=== PATIENT | female | born 1960 | race Caucasian/White ===

== ENCOUNTER 2020-03-05 | Outpatient (REF) | payer OTHER, SELFPAY ==
[2020-03-05 04:58] LABS: SARS COV2 PCR INHOUSE NEGATIVE (Negative)
== END 2020-03-05 00:01 | disposition home or self-care (01) ==
LOC: HO.LAB
PROVIDERS: Visit Provider Internal Medicine
DX: Z20.828 Contact with and (suspected) exposure to other viral communicable diseases (principal)
CPT/HCPCS: 87635

== ENCOUNTER 2020-03-11 06:18 | Outpatient (REF) | payer OTHER, SELFPAY ==
[2020-03-11 06:46] LABS: COVID-19 Test Negative (Negative)
== END 2020-03-11 06:19 | disposition home or self-care (01) ==
LOC: HO.LAB 06:18
PROVIDERS: Visit Provider Internal Medicine
DX: Z20.828 Contact with and (suspected) exposure to other viral communicable diseases (principal)
CPT/HCPCS: 87635

== ENCOUNTER 2020-05-14 12:32 | Outpatient (REF) | payer OTHER, SELFPAY ==
[2020-05-14 13:56] LABS: COVID-19 Test Negative (Negative)
== END 2020-05-14 12:33 | disposition home or self-care (01) ==
LOC: HO.LAB 12:32
PROVIDERS: Visit Provider Internal Medicine
DX: Z20.828 Contact with and (suspected) exposure to other viral communicable diseases (principal)
CPT/HCPCS: 87635; C9803

== ENCOUNTER 2020-05-20 06:56 | Outpatient (REF) | payer OTHER, SELFPAY ==
[2020-05-20 07:23] LABS: COVID-19 Test Negative (Negative); IDNOW Serial# 55D5AD1C
== END 2020-05-20 06:57 | disposition home or self-care (01) ==
LOC: HO.EMPCOV 06:56
PROVIDERS: Visit Provider Internal Medicine
DX: Z20.828 Contact with and (suspected) exposure to other viral communicable diseases (principal)
CPT/HCPCS: 36415; 87635; C9803

== ENCOUNTER 2020-11-12 06:14 | Outpatient (REF) | payer OTHER, SELFPAY ==
[2020-11-12 07:37] LABS: MANUAL DIFF FLAG NO
[2020-11-12 07:45] LABS: Basophils Absolute Auto 0.1 X10*3/uL (0.0-0.2); Basophils Percent Auto 0.6 % (0-2); Eosinophils Absolute Auto 0.2 X10*3/uL (0.0-0.4); Eosinophils Percent Auto 2.8 % (0-4); Hematocrit 40.4 % (37-47); Hemoglobin 13.9 g/dl (12.0-16.0); Imm Gran Abs Auto 0.02 X10*3/uL (0.00-0.03); Imm Gran Pct Auto 0.2 % (0.0-0.4); Lymphocytes Absolute Auto 2.6 X10*3/uL (1.2-4.9); Mean Corpuscular HGB Conc 34.4 g/dl (31.0-35.0); Mean Corpuscular Hemoglobin 30.2 pg (27.0-33.0); Mean Corpuscular Volume 87.6 fL (80-98); Mean Platelet Volume 10.9 fL (9.4-12.3); Monocytes Absolute Auto 0.7 X10*3/uL (0.1-1.2); Monocytes Percent Auto 8.6 % (2-11); Neutrophils Absolute Auto 4.7 X10*3/uL (2.0-8.3); Neutrophils Percent Auto 56.8 % (45-73); Platelet Count 268 X10*3/uL (160-400); Red Blood Count 4.61 X10*6/uL (4.20-5.50); Red Cell Distribution Width 12.1 % (11.0-16.0); White Blood Count 8.3 X10*3/uL (4.8-10.8)
[2020-11-12 08:14] LABS: Alanine Aminotransferase 25 U/L (0-31); Albumin Level 4.3 g/dL (3.5-5.0); Alkaline Phosphatase 82 U/L (39-117); Anion Gap 14 (12-20); Aspartate Amino Transferase 20 U/L (5-31); Bilirubin Total 0.4 mg/dL (0.0-1.0); Blood Urea Nitrogen 16 mg/dL (9-16); Calcium 9.2 mg/dL (8.4-10.2); Carbon Dioxide 26 mmol/L (22-29); Chloride 106 mmol/L (96-108); Cholesterol 147 mg/dL; Estimated Glomerular Filt Rate > 60; Glucose Random 113 mg/dL (60-115); HDL Cholesterol 44 mg/dL; Iron 59 mcg/dL (30-160); Percent Iron Saturation 18 % (15-50); Potassium 3.7 mmol/L (3.3-5.1); Sodium 142 mmol/L (135-145); Total Iron Binding Capacity 319 mcg/dL (228-428); Total Protein 7.1 g/dL (6.5-8.0); Unsaturated Iron Binding 260 ug/dL
[2020-11-12 08:15] LABS: Creatinine Urine 166.83 mg/dL; Microalbum/Creatinine Ratio Ur 4.7 ug/mg cr
[2020-11-12 08:37] LABS: Ferritin 120 ng/mL (10-250); TSH reflex Free T4 2.68 uIU/mL (0.32-4.0); Vitamin D 25-OH Total 39.6 ng/mL (>30)
[2020-11-13 04:11] LABS: ~HepC Num1 0.07 S/CO (0.00-0.79); ~Hepatitis C Antibody Nonreactive (Nonreactive)
[2020-11-13 07:26] LABS: LDL Cholesterol Direct 74 mg/dL (<100)
== END 2020-11-12 06:15 | disposition home or self-care (01) ==
LOC: HO.LAB 06:14
PROVIDERS: PCP Internal Medicine; Visit Provider Internal Medicine
DX: Z00.00 Encounter for general adult medical examination without abnormal findings (principal); E78.00 Pure hypercholesterolemia, unspecified; I10 Essential (primary) hypertension; G47.33 Obstructive sleep apnea (adult) (pediatric); K63.5 Polyp of colon
CPT/HCPCS: 36415; 80053; 82043; 82306; 82465; 82728; 83540; 83718; 83721; 84443; 85025; 86803

== ENCOUNTER → 2021-01-14 15:32 | Outpatient (BNVA) | payer OTHER, SELFPAY | PROVIDERS: PCP Internal Medicine; Visit Provider Internal Medicine ==

== ENCOUNTER → 2021-01-19 09:35 | Outpatient (BNVA) | payer OTHER, SELFPAY | PROVIDERS: PCP Internal Medicine; Visit Provider Physician Assistant ==

== ENCOUNTER 2021-02-15 11:24 | Outpatient (REF) | payer OTHER, SELFPAY ==
--- NOTE | ~2021-02-15 | MM_ITS ---
EXAMINATION: MM SCREENING DIGITAL BREAST TOMOSYNTHESIS, BILATERAL CLINICAL INFORMATION: Screening. Asymptomatic. The lifetime risk of breast cancer based on the Tyrer-Cuzick Model is 11%. COMPARISON: Mammography: 06/19/2018, outside mammography 09/09/2014 ([facility]). TECHNIQUE: Digital breast tomosynthesis is performed in both the craniocaudal and mediolateral oblique views along with computer-aided detection (CAD). Synthesized 2D images are generated from the tomosynthesis. FINDINGS: There are scattered areas of fibroglandular density (ACR BI-RADS breast composition Category b). There are no significant masses, abnormal calcifications, or other abnormalities. No developing density. No significant changes. The axilla and skin contours are unremarkable. MM/MM tomosynthesis screening BI IMPRESSION: No mammographic evidence of malignancy. ASSESSMENT: BI-RADS 1: Negative RECOMMENDATION: Routine annual mammography screening. This patient's information was entered into a reminder system with a target due date for their next mammogram.
== END 2021-02-15 11:25 | disposition home or self-care (01) ==
LOC: HO.MAMMO 11:24
PROVIDERS: Visit Provider Internal Medicine
DX: Z12.31 Encounter for screening mammogram for malignant neoplasm of breast (principal)
CPT/HCPCS: 77063; 77067

== ENCOUNTER 2021-04-16 06:35 | Day surgery (SDC) | payer OTHER, SELFPAY ==
[2021-04-07 11:42] VITALS: BMI 28.7
--- NOTE | 2021-04-15 10:57 | HO.ANESPROP2 ---
Documented by User: Heather Luke NP 04/15/21 10:58 HPI - Anesthesia Eval Consult details Narrative: 61yo F for Colonoscopy PMFSH Active Problems Active Problems: All Active Problems (Updated 04/07/21 @ 11:41 by Rika Marcano RN) Encounter for screening colonoscopy (Acute) Chronic GERD (Acute) DANIELA on CPAP (Acute) Obesity (BMI 30.0-34.9) (Acute) Past Medical History Medical History Chronic GERD COVID-19 vaccine series completed Depression Obesity (BMI 30.0-34.9) DANIELA on CPAP Family History Family History (Updated 01/19/21 @ 09:40 by PEPE Pardo) Mother History of breast cancer Surgical History Surgical History H/O colonoscopy History of open reduction and internal fixation (ORIF) procedure Hx of dilation and curettage Social History Social History (Updated 01/19/21 @ 10:22 by Michelle Barajas PA-C) Household Members Other:: - children Are you a primary personal care home administrator to a significant other at home: No Do you presently have visiting nurse or other home services: No Alcohol intake: current Alcohol intake frequency: holidays/special occasions only Patient Tobacco Use Status: Never used Tobacco Use of substances other than those prescribed or required for medical reasons: No Have you been hit, kicked, punched, or otherwise hurt by someone within the past year? If so, by whom?: No Are you DNR?: No Advance Directives: No (states would be Lee but no official HCP form) Advance Directives Information Provided: Yes (informational brochure mailed) Advance Directives on File: No Recently lost weight without trying: No Eating poorly because of decreased appetite: No Nutrition Risks: No Nutritional Risk Poor oral hygiene: No (upper front caps / lower front removable bridge) Current occupation: RN C ED Meds Allergies Allergy/AdvReac Type Severity Reaction Status Date / Time lisinopril [LISINOPRIL] AdvReac Intermediate COUGH Verified 04/07/21 11:17 Home Medications Medication Instructions Recorded Confirmed Last Taken Type amlodipine 5 mg tablet 5 mg PO BEDTIME 01/14/21 04/07/21 Unknown History atorvastatin 20 mg tablet 20 mg PO BEDTIME 01/14/21 04/07/21 Unknown History citalopram 20 mg tablet 20 mg PO DAILY 01/14/21 04/07/21 Unknown History hydrochlorothiazide 25 mg tablet 25 mg PO DAILY 01/14/21 04/07/21 Unknown History omeprazole 20 mg capsule,delayed 20 mg PO DAILY 01/14/21 04/16/21 04/16/21 05:00 History release Exam Exam Date and Time: April 15, 2021 1057 Height,Weight and Vital Signs: Height 5 ft 2 in Weight 71.214 kg Pertinent Lab Results Pertinent Lab Results: Laboratory Tests 11/12/20 11/12/20 06:45 06:45 WBC 8.3 Hgb 13.9 Hct 40.4 Plt Count 268 Sodium 142 Potassium 3.7 Chloride 106 Carbon Dioxide 26 BUN 16 Creatinine 0.73 Assessment and Plan Assessment Anesthesia Assessment: Chart Reviewed Documented by User: John Duque MD 04/16/21 07:20 [facility] Past Medical History Medical History Chronic GERD COVID-19 vaccine series completed Depression Obesity (BMI 30.0-34.9) DANIELA on CPAP Family History Family History (Updated 01/19/21 @ 09:40 by PEPE Pardo) Mother History of breast cancer Surgical History Surgical History H/O colonoscopy History of open reduction and internal fixation (ORIF) procedure Hx of dilation and curettage Social History Social History (Updated 01/19/21 @ 10:22 by Michelle Barajas PA-C) Household Members Other:: - children Are you a primary personal care home administrator to a significant other at home: No Do you presently have visiting nurse or other home services: No Alcohol intake: current Alcohol intake frequency: holidays/special occasions only Patient Tobacco Use Status: Never used Tobacco Use of substances other than those prescribed or required for medical reasons: No Have you been hit, kicked, punched, or otherwise hurt by someone within the past year? If so, by whom?: No Are you DNR?: No Advance Directives: No (states would be Lee but no official HCP form) Advance Directives Information Provided: Yes (informational brochure mailed) Advance Directives on File: No Recently lost weight without trying: No Eating poorly because of decreased appetite: No Nutrition Risks: No Nutritional Risk Poor oral hygiene: No (upper front caps / lower front removable bridge) Current occupation: RN C ED Meds Allergies Allergy/AdvReac Type Severity Reaction Status Date / Time lisinopril [LISINOPRIL] AdvReac Intermediate COUGH Verified 04/07/21 11:17 Home Medications Medication Instructions Recorded Confirmed Last Taken Type amlodipine 5 mg tablet 5 mg PO BEDTIME 01/14/21 04/07/21 Unknown History atorvastatin 20 mg tablet 20 mg PO BEDTIME 01/14/21 04/07/21 Unknown History citalopram 20 mg tablet 20 mg PO DAILY 01/14/21 04/07/21 Unknown History hydrochlorothiazide 25 mg tablet 25 mg PO DAILY 01/14/21 04/07/21 Unknown History omeprazole 20 mg capsule,delayed 20 mg PO DAILY 01/14/21 04/16/21 04/16/21 05:00 History release Exam Airway Mallampati Class: II TM Dist: >3cm Neck ROM: Full Partial: Lower
[2021-04-16 07:02] VITALS: BP 130/82; PULSE 92; RESP 16; TEMP 36.6; O2SAT 96
[2021-04-16] MEDS: Lactated Ringers 1,000 ML 100 ML IVCONT (07:08)
--- NOTE | 2021-04-16 07:17 | MHC.SHP ---
Pre-Procedural Eval Section A Date of Service: 04/16/21 The patient is an INPATIENT: No The History & Physical has been completed within 30 days and I have reviewed it.: No Section B Chief Complaint: screening Details of Present Illness: colon cancer screening, GERD Relevant Family History (Specify if Yes): No Relevant Social History: None Present Medications: see Short Stay Collaborative assessment Medical History: Significant History (Chronic GERD Obesity (BMI 30.0-34.9) DANIELA on CPAP) History of Previous Operations: Relevant previous surgery/procedure and date(s) (H/O colonoscopy Hx of dilation and curettage) Allergies: Allergies Allergy/AdvReac Type Severity Reaction Status Date / Time lisinopril [LISINOPRIL] AdvReac Intermediate COUGH Verified 04/07/21 11:17 Review of Systems Sugical H&P ROS: Negative: Constitution, Cardiovascular, Respiratory and Gastrointestinal Exam Surgical H&P Exam: Normal: Heart, Normal: Lungs, Normal: Extremities and Normal: Abdomen Plan Diagnosis/Plan: Change (add EGD for hx of GERD) I have reviewed the history and physical and performed a pertinent physical examination on my patient. No changes have occurred unless specified.
--- NOTE | 2021-04-16 07:18 | PM.OP ---
Brief Operative Note Date of Service: 04/16/21 Pre-op diagnosis: Colon cancer screening, GERD Post-op diagnosis: other (GERD, hiatal hernia, gastric polyps, colon polyps, diverticulosis) Procedure: FLEXIBLE TRANSORAL UPPER GASTROINTESTINAL ENDOSCOPY WITH BIOPSIES AND SNARE POLYPECTOMY COLONOSCOPY TILL CECUM WITH SNARE POLYPECTOMY, SUBMUCOSAL INJECTION AND HEMOCLIP PLACEMENT. UPPER ENDOSCOPY Consent: Indications for the procedure and potential complications of bleeding, perforation, reaction to medications and missed diagnosis were discussed with the patient and informed consent was obtained. Instrument: Olympus GIF H 190 mid size upper endoscope Monitoring: Vital signs and clinical assessment, continuous EKG monitoring, Pulse oximetry, Carbon Dioxide monitoring and blood pressure monitoring were done throughout the procedure. Procedure: The patient was placed in the left lateral decubitis position and pre-procedure medications were administered and a bite block was placed. The endoscope was inserted into the mouth and advanced under direct vision to the third part of duodenum. A careful inspection was made as the upper endoscope was withdrawn including a retroflexed examination of the proximal stomach; Findings and interventions are described below. Findings: Larynx: Normal Esophagus: GE junction at 34 cms, small hiatal hernia 34 to 36 cms. Irregular Z line with ? 1 cms tongue of possible Wiseman's - biopsies were obtained. No esophagitis. Stomach: Multiple 4 mm to 1.5-2 cms benign appearing gastric polyps. Largest 2 cms polyp removed with a hot snare and retrieved with a Oseguera Net. Mild gastric erythema. Biopsies were obtained. Grade 2 flap valve on retroflexed examination of the cardia. Duodenum: Normal bulb and descending duodenum Intervention: Biopsies and snare polypectomy of gastric polyp as noted above COLONOSCOPY PROCEDURE NOTE Consent: Indications for the procedure and potential complications of bleeding, perforation, reaction to medications and missed diagnosis were discussed with the patient and informed consent was obtained. Instrument: Olympus PCF H 190 L variable stiffness pediatric colonoscope Monitoring: Vital signs and clinical assessment, intermittent blood pressure monitoring, continuous EKG monitoring, Pulse oximetry and Carbon Dioxide monitoring were done throughout the procedure. Colon withdrawl time was 26 minutes. Procedure: The patient was placed in the left lateral decubitis position and pre-procedure medications were administered. After a digital rectal examination of the ano-rectum, the video colonoscope was inserted into the rectum and advanced through the colon to the cecum. The colonoscope was slowly withdrawn in a retrograde panoramic fashion and the colon mucosa was carefully examined including a retroflexed view of the rectum. Findings and interventions are described below. Procedure Difficulty: : Without difficulty Findings: Terminal Ileum: Not evaluated Cecum: A 2 to 2.5 cms flat polyp adjacent to appendicular orifice. Polyp was raised with 11 cc of Orise solution and removed piecemeal with a hot snare. Polypectomy site was closed resolution clip. Ascending Colon: Scattered moderate diverticulosis Transverse Colon: Scattered moderate diverticulosis Descending Colon: Scattered moderate diverticulosis Sigmoid Colon: Moderate diverticulosis Rectum: Normal Ano-rectum: Normal Colon preparation: Good after some irrigation Impression and Post Procedure Diagnosis: Endoscopy Findings: ESOPHAGUS: small hiatal hernia 34 to 36 cms. Irregular Z line with ? 1 cms tongue of possible Wiseman's - biopsies were obtained. No esophagitis. STOMACH: Multiple 4 mm to 1.5-2 cms benign appearing gastric polyps. Largest 2 cms polyp removed with a hot snare and retrieved with a Oseguera Net. Mild gastric erythema. Biopsies were obtained. Colonoscopy Findings: One medium sized polyp removed Moderate diverticulosis seen in the entire colon Plan: Await pathology results Patient has an appointment on 04/29/21 in the GI Clinic with [facility] . Repeat Colonoscopy interval based on path results - in 6-12 minths if polyp is adenomatous (to check polypectomy site in the cecum) and 10 years if polyps are hyperplastic. Above findings were reviewed with the patient and GERD, hiatal hernia, gastric polyps, colon polyps and diverticulosis handouts were given in the discharge area Surgeon: Nicholas Winters MD Anesthesia: MAC (Kathy Magaña, GROCERY SUPERVISOR) Was an Environmental Scientist used for this Procedure?: Yes Environmental Scientist: Nabila Lora Estimated blood loss (mL): 0 Pathology: other ( A. gastric antrum bxs, R/O H. pylori B. gastric polyp #1 C. gastric polyp #2 D. G-E junction bxs, R/O Wiseman's E. cecal polyp with Orise) Condition: stable Disposition: PACU
--- NOTE | 2021-04-16 07:19 | P.OP_ITS ---
Operative Note Operative Note Date of Service: 04/16/21 Narrative: Pre-op diagnosis:?Colon cancer screening, GERD Post-op diagnosis:?other (GERD, hiatal hernia, gastric polyps, colon polyps, diverticulosis) Procedure:? FLEXIBLE TRANSORAL UPPER GASTROINTESTINAL ENDOSCOPY WITH BIOPSIES AND SNARE POLYPECTOMY COLONOSCOPY TILL CECUM WITH SNARE POLYPECTOMY, SUBMUCOSAL INJECTION AND HEMOCLIP PLACEMENT. UPPER ENDOSCOPY Consent:?Indications for the procedure and potential complications of bleeding, perforation, reaction to medications and missed diagnosis were discussed with the patient and informed consent was obtained. Instrument:?Olympus GIF H 190 mid size upper endoscope Monitoring: Vital signs and clinical assessment, continuous EKG monitoring, Pulse oximetry, Carbon Dioxide monitoring and blood pressure monitoring were done throughout the procedure. Procedure:?The patient was placed in the left lateral decubitis position and pre-procedure medications were administered and a bite block was placed. The endoscope was inserted into the mouth and advanced under direct vision to the third part of duodenum. A careful inspection was made as the upper endoscope was withdrawn including a retroflexed examination of the proximal stomach; Findings and interventions are described below. Findings: Larynx:? Normal Esophagus:?GE junction at 34 cms, small hiatal hernia 34 to 36 cms.? Irregular Z line with ? 1 cms tongue of possible Wiseman's - biopsies were obtained.? No esophagitis. Stomach:?Multiple 4 mm to 1.5-2 cms benign appearing gastric polyps.? Largest 2 cms polyp removed with a hot snare and retrieved with a Oseguera Net.? Mild gastric erythema. Biopsies were obtained. Grade 2 flap valve on retroflexed examination of the cardia. Duodenum:?Normal bulb and descending duodenum Intervention:?Biopsies and snare polypectomy of gastric polyp as noted above COLONOSCOPY PROCEDURE NOTE Consent:?Indications for the procedure and potential complications of bleeding, perforation, reaction to medications and missed diagnosis were discussed with the patient and informed consent was obtained. Instrument:?Olympus PCF H 190 L variable stiffness pediatric colonoscope Monitoring:?Vital signs and clinical assessment, intermittent blood pressure monitoring, continuous EKG monitoring, Pulse oximetry and Carbon Dioxide monitoring were done throughout the procedure. Colon withdrawl time was 26 minutes. Procedure:?The patient was placed in the left lateral decubitis position and pre-procedure medications were administered. After a digital rectal examination of the ano-rectum, the video colonoscope was inserted into the rectum and advanced through the colon to the cecum. The colonoscope was slowly withdrawn in a retrograde panoramic fashion and the colon mucosa was carefully examined including a retroflexed view of the rectum. Findings and interventions are described below. Procedure Difficulty:?: Without difficulty Findings: Terminal Ileum: Not evaluated Cecum:? A 2 to 2.5 cms flat polyp adjacent to appendicular orifice. Polyp was raised with 11 cc of Orise solution and removed piecemeal with a hot snare.? Polypectomy site was closed resolution clip. Ascending Colon:??Scattered moderate diverticulosis Transverse Colon:??Scattered moderate diverticulosis Descending Colon:? Scattered moderate diverticulosis Sigmoid Colon:??Moderate diverticulosis Rectum:??Normal Ano-rectum:??Normal Colon preparation:? Good after some irrigation Impression and Post Procedure Diagnosis: Endoscopy Findings: ESOPHAGUS: small hiatal hernia 34 to 36 cms.? Irregular Z line with ? 1 cms tongue of possible Wiseman's - biopsies were obtained.? No esophagitis. STOMACH: Multiple 4 mm to 1.5-2 cms benign appearing gastric polyps.? Largest 2 cms polyp removed with a hot snare and retrieved with a Oseguera Net.? Mild gastric erythema. Biopsies were obtained. Colonoscopy Findings: One medium sized polyp removed Moderate diverticulosis seen in the entire colon Plan: Await pathology results Patient has an appointment on 04/29/21 in the GI Clinic with [facility] ? . Repeat Colonoscopy interval based on path results - in 6-12 minths if polyp is adenomatous (to check polypectomy site in the cecum) and 10 years if polyps are hyperplastic. Above findings were reviewed with the patient and GERD, hiatal hernia, gastric polyps, colon polyps and diverticulosis handouts were given in the discharge area Surgeon:?Nicholas Winters MD Anesthesia:?MAC (Kathy Magaña CRNA) Was an Printer Slotter Operator used for this Procedure?:?Yes Printer Slotter Operator:?Nabila Lora Estimated blood loss (mL):?0 Pathology:?other ( A. gastric antrum bxs, R/O H. pylori? B. gastric polyp #1? C. gastric polyp #2? D. G-E junction bxs, R/O Wiseman's? E. cecal polyp with Orise) Condition:?stable Disposition:?PACU
--- NOTE | 2021-04-16 07:20 | HO.ANESPROP2 ---
[facility] Active Problems Active Problems: All Active Problems (Updated 04/07/21 @ 11:41 by Rika Marcano RN) Encounter for screening colonoscopy (Acute) Chronic GERD (Acute) DANIELA on CPAP (Acute) Obesity (BMI 30.0-34.9) (Acute) Past Medical History Medical History Chronic GERD COVID-19 vaccine series completed Depression Obesity (BMI 30.0-34.9) DANIELA on CPAP Family History Family History (Updated 01/19/21 @ 09:40 by Carolina Kyle [facility]) Mother History of breast cancer Family history of problems with anesthesia: No Surgical History Surgical History H/O colonoscopy History of open reduction and internal fixation (ORIF) procedure Hx of dilation and curettage History of Problems with Anesthesia: No Social History Social History (Updated 01/19/21 @ 10:22 by Michelle Barajas PA-C) Household Members Other:: - children Are you a primary daycare teacher to a significant other at home: No Do you presently have visiting nurse or other home services: No Alcohol intake: current Alcohol intake frequency: holidays/special occasions only Patient Tobacco Use Status: Never used Tobacco Use of substances other than those prescribed or required for medical reasons: No Have you been hit, kicked, punched, or otherwise hurt by someone within the past year? 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 Allergies Allergy/AdvReac Type Severity Reaction Status Date / Time lisinopril [LISINOPRIL] AdvReac Intermediate COUGH Verified 04/07/21 11:17 Active Medications: Current Medications Lactated Ringer's (Lr) 1,000 mls @ 100 mls/hr IVCONT .Q10H SERGIO Last Admin: 04/16/21 07:08 Dose: 100 mls/hr Documented by: Home Medications Medication Instructions Recorded Confirmed Last Taken Type amlodipine 5 mg tablet 5 mg PO BEDTIME 01/14/21 04/07/21 Unknown History atorvastatin 20 mg tablet 20 mg PO BEDTIME 01/14/21 04/07/21 Unknown History citalopram 20 mg tablet 20 mg PO DAILY 01/14/21 04/07/21 Unknown History hydrochlorothiazide 25 mg tablet 25 mg PO DAILY 01/14/21 04/07/21 Unknown History omeprazole 20 mg capsule,delayed 20 mg PO DAILY 01/14/21 04/16/21 04/16/21 05:00 History release Exam Exam Date and Time: April 16, 2021 07 Height,Weight and Vital Signs: Height 5 ft 2 in Weight 71.214 kg Last Vital Signs Temp 97.9 F 04/16/21 07:02 Pulse 92 04/16/21 07:02 Resp 16 04/16/21 07:02 BP 130/82 04/16/21 07:02 Pulse Ox 96 04/16/21 07:02 Assessment and Plan Assessment Anesthesia Assessment: Anesthesia Plan Discussed and Chart Reviewed Final Anesthetic Review Family History of Problems with Anesthesia: No History of Problems with Anesthesia: No NPO: Yes ASA Class: II Final Preanesthetic Review: No Changes in Pt Med Stat, Meds/Allgs Chart Reviewed, Consent Obtained/Reviewed and Anes Risks/Benef Reviewed Patient Risk: Intermediate Procedure Risk: Low Anesthetic Plan Anesthetic Plan: MAC: Disposition: Standard PACU
[2021-04-16 08:47] VITALS: BP 106/73; PULSE 68; RESP 12; TEMP 36.4; O2SAT 100
[2021-04-16 09:02] VITALS: BP 132/77; PULSE 62; RESP 18; TEMP 36.4; O2SAT 98
== END 2021-04-16 09:45 | disposition home or self-care (01) ==
LOC: HO.SSS 06:36
PROVIDERS: PCP Internal Medicine; Visit Provider Internal Medicine Gastroenterology
PROC: 0DJD8ZZ Inspection of Lower Intestinal Tract, Via Natural or Artificial Opening Endoscopic (ICD-10-PCS; CPT 45378; principal; 2021-04-16 07:30)
DX: Z12.11 Encounter for screening for malignant neoplasm of colon (principal); D12.0 Benign neoplasm of cecum; K57.30 Diverticulosis of large intestine without perforation or abscess without bleeding; K21.9 Gastro-esophageal reflux disease without esophagitis; K29.50 Unspecified chronic gastritis without bleeding; K31.7 Polyp of stomach and duodenum; K44.9 Diaphragmatic hernia without obstruction or gangrene; E66.8 Other obesity; Z68.30 Body mass index [BMI] 30.0-30.9, adult; G47.33 Obstructive sleep apnea (adult) (pediatric); Z99.89 Dependence on other enabling machines and devices; Z88.8 Allergy status to other drugs, medicaments and biological substances
CPT/HCPCS: 45385; 45381; 43251; 43239; 88305; 88342

== ENCOUNTER → 2021-07-19 09:02 | Outpatient (BNVA) | payer OTHER, SELFPAY | PROVIDERS: PCP Internal Medicine; Visit Provider Physician Assistant ==

== ENCOUNTER 2024-08-06 07:11 | Outpatient (REF) | payer OTHER, SELFPAY ==
[2024-08-06 07:33] LABS: MANUAL DIFF FLAG NO
[2024-08-06 08:12] LABS: Basophils Absolute Auto 0.1 X10*3/uL (0.0-0.2); Basophils Percent Auto 0.7 % (0-2); Eosinophils Absolute Auto 0.2 X10*3/uL (0.0-0.4); Eosinophils Percent Auto 2.1 % (0-4); Hematocrit 38.8 % (37.0-47.0); Hemoglobin 13.8 g/dl (12.0-16.0); Imm Gran Abs Auto 0.02 X10*3/uL (0.00-0.03); Imm Gran Pct Auto 0.2 % (0.0-0.4); Lymphocytes Absolute Auto 2.3 X10*3/uL (1.2-4.9); Lymphocytes Percent Auto 27.7 % (20-40); Mean Corpuscular HGB Conc 35.6 g/dl (31.0-35.0); Mean Corpuscular Hemoglobin 30.3 pg (27.0-33.0); Mean Corpuscular Volume 85.3 fL (80.0-98.0); Monocytes Absolute Auto 0.8 X10*3/uL (0.1-1.2); Monocytes Percent Auto 9.2 % (2-11); Neutrophils Absolute Auto 4.9 x10*3/uL (2.0-8.3); Neutrophils Percent Auto 60.1 % (45-73); Platelet Count 258 X10*3/uL (160-400); Red Blood Count 4.55 X10*6/uL (4.20-5.50); Red Cell Distribution Width 12.3 % (11.0-16.0); White Blood Count 8.1 X10*3/uL (4.8-10.8)
[2024-08-06 08:49] LABS: Creatinine Urine 124.62 mg/dL; Microalbum/Creatinine Ratio Ur 11.2 ug/mg cr (<30)
[2024-08-06 08:57] LABS: Alanine Aminotransferase 19 U/L (0-31); Albumin Level 4.2 g/dL (3.5-5.0); Alkaline Phosphatase 83 U/L (39-117); Anion Gap 13 (12-20); Aspartate Amino Transferase 18 U/L (5-31); Bilirubin Total 0.3 mg/dL (0.0-1.0); Blood Urea Nitrogen 19 mg/dL (9-16); Calcium 9.4 mg/dL (8.4-10.2); Carbon Dioxide 24 mmol/L (22-29); Chloride 108 mmol/L (96-108); Cholesterol 145 mg/dL (<200); Estimated Glomerular Filt Rate > 60; Glucose Random 107 mg/dL (60-115); HDL Cholesterol 46 mg/dL (>40); Iron 54 mcg/dL (30-160); Percent Iron Saturation 19 % (15-50); Potassium 3.4 mmol/L (3.3-5.1); Sodium 142 mmol/L (135-145); Total Iron Binding Capacity 282 mcg/dL (228-428); Total Protein 7.3 g/dL (6.5-8.0); Unsaturated Iron Binding 228 ug/dL
[2024-08-06 09:15] LABS: Ferritin 129 ng/mL (10-250); TSH reflex Free T4 3.15 uIU/mL (0.32-4.0); Vitamin D 25-OH Total 21.4 ng/mL (>30)
[2024-08-06 09:16] LABS: HBS Num1 16.06 mIU/mL (0-7.99); Vitamin B12 397 pg/mL (200-900); ~Hepatitis B Surface Antibody REACTIVE (Nonreactive)
[2024-08-07 04:29] LABS: LDL Cholesterol Direct 95 mg/dL (<100)
[2024-08-07 08:08] LABS: Rubella IgG Antibody 3.11 Index
[2024-08-07 09:34] LABS: Rubeola IgG (Measles) <13.50 AU/mL
[2024-08-09 08:14] LABS: Lipoprotein A 12 nmol/L (<75)
[2024-08-11 14:22] LABS: Apolipoprotein B 80 mg/dL (<90)
== END 2024-08-06 07:12 | disposition home or self-care (01) ==
LOC: HO.LAB 07:11
PROVIDERS: PCP Internal Medicine; Visit Provider Internal Medicine
DX: Z00.00 Encounter for general adult medical examination without abnormal findings (principal); R94.31 Abnormal electrocardiogram [ECG] [EKG]; K22.70 Barrett's esophagus without dysplasia; K21.9 Gastro-esophageal reflux disease without esophagitis; I10 Essential (primary) hypertension
CPT/HCPCS: 36415; 80053; 82043; 82172; 82306; 82465; 82570; 82607; 82728; 83540; 83695; 83718; 83721; 83735; 84443; 85025; 86706; 86735; 86762; 86765